=== PATIENT | male | born 1970 | race Caucasian/White ===

== ENCOUNTER 2018-05-05 21:16 | Inpatient (IN) | payer OTHER ==
[~2018-05-05] VITALS: Ht 172.7 cm; Wt 77.1 kg
[2018-05-05 21:20] VITALS: Ht 172.7 cm; Wt 77.1 kg
[2018-05-05 22:08] LABS: PLATELET COUNT 195 x10^3mcL (130-400); RED CELL DISTRIBUTION WIDTH 12.7 % (11.5-14.5)
[2018-05-05 22:13] LABS: BASOPHIL % 2.3 % (0-2); CALCIUM 9.1 mg/dL (8.5-10.1); CHLORIDE SERUM 100 mmol/L (98-107); CREATININE SERUM 0.8 mg/dL (0.7-1.3); GFR1 > 60 mL/min; GLUCOSE SERUM 143 mg/dL (74-106); POTASSIUM SERUM 3.9 mmol/L (3.5-5.1); SODIUM SERUM 133 mmol/L (136-145)
[2018-05-05 22:18] LABS: ALBUMIN 3.9 g/dL (3.4-5.0); ALKALINE PHOSPHATASE 55 U/L (46-116); ALT/SGPT 51 U/L (16-63); AST/SGOT 24 U/L (15-37); BILIRUBIN TOTAL 0.5 mg/dL (0.20-1.00); LIPASE 211 IU/L (73-393)
[2018-05-05 23:49] LABS: UA SPECIFIC GRAVITY 1.015 (1.005-1.035); microscopic required? YES; urine erythrocyte NEGATIVE (NEGATIVE)
[2018-05-06 00:02] LABS: AMPHETAMINE QUAL UR NONE DETECTED (See below)
[2018-05-06 01:05] LABS: PHOSPHOROUS 2.7 mg/dL (2.5-4.9)
[2018-05-06 01:06] LABS: T3 TOTAL 1.18 ng/mL
[2018-05-06 01:08] VITALS: BP 155/83
[2018-05-06 01:09] LABS: CHOLESTEROL/HDL RATIO 1.6
[2018-05-06 01:29] LABS: FREE T4 0.87 ng/dL (0.76-1.46); FREE THYROXINE INDEX 1.9 ug/dL (1.4-4.5); T4(THYROXINE) 5.4 ug/dL (4.7-13.3)
[2018-05-06 05:59] VITALS: BP 126/84
[2018-05-06 06:53] LABS: BASOPHIL % 0.4 % (0-2); PLATELET COUNT 170 x10^3mcL (130-400); RED CELL DISTRIBUTION WIDTH 13.1 % (11.5-14.5)
[2018-05-06 07:40] LABS: CALCIUM 8.4 mg/dL (8.5-10.1); CARBON DIOXIDE 24.9 mmol/L (21-32); CHLORIDE SERUM 102 mmol/L (98-107); CREATININE SERUM 0.7 mg/dL (0.7-1.3); GFR1 > 60 mL/min; GLUCOSE SERUM 107 mg/dL (74-106); POTASSIUM SERUM 3.9 mmol/L (3.5-5.1); SODIUM SERUM 134 mmol/L (136-145)
[2018-05-06 09:03] VITALS: BP 133/86
[2018-05-06] MEDS ORDERED: LEVAQUIN750 MG PO (11:26)
[2018-05-06] MEDS ORDERED: FLA500 PO (11:26)
[2018-05-06] MEDS ORDERED: LAC PO (11:27)
[2018-05-06] MEDS ORDERED: TRAMADOL HCL50 MG PO (12:20)
[2018-05-06 13:27] VITALS: BP 133/86
== END 2018-05-06 16:27 | disposition home or self-care (01) | DRG 391 ==
LOC: ED 21:16 → MU 23:12
PROVIDERS: Emergency Medicine; Internal Medicine
DX: K52.9 Noninfective gastroenteritis and colitis, unspecified (principal); N17.0 Acute kidney failure with tubular necrosis; E87.1 Hypo-osmolality and hyponatremia; K57.30 Diverticulosis of large intestine without perforation or abscess without bleeding; R73.03 Prediabetes; R80.9 Proteinuria, unspecified; Z68.27 Body mass index [BMI] 27.0-27.9, adult
CPT/HCPCS: 83880; 84439; 87046; 87046-59; J1956; J2270; J3490; J7030; Q0092